=== PATIENT | male | born 1985 | race African-American/Black ===

== ENCOUNTER 2019-01-17 16:21 | Emergency (ER) | payer SELFPAY ==
[2019-01-17] MEDS: SUMAtriptan 6 MG/0.5 ML SDV SUBCUT ONE (16:31)
--- NOTE | 2019-01-17 16:33 | EDM.PDOC ---
ED HPI GENERAL MEDICAL PROBLEM - General Chief Complaint: Headache Stated Complaint: Migraine Time Seen by Provider: 01/17/19 16:35 Source of Information: Reports: Patient History Limitations: Reports: No Limitations - History of Present Illness INITIAL COMMENTS - FREE TEXT/NARRATIVE: Patient is a 33-year-old who has family history of migraine headaches states that he's had a migraine now for 2 days with no relief is on no migraine medication Onset: Gradual Duration: Day(s):, Recurring Location: Reports: Head Quality: Reports: Ache, Sharp Severity: Moderate Improves with: Reports: None Worsens with: Reports: None - Related Data Allergies Allergy/AdvReac Type Severity Reaction Status Date / Time No Known Allergies Allergy Verified 01/17/19 16:29 Home Meds: Home Meds . [No Known Home Meds] 01/17/19 [History] ED ROS GENERAL - Review of Systems Review Of Systems: ROS reveals no pertinent complaints other than HPI. Respiratory: Reports: No Symptoms - Physical Exam Exam: See Below Exam Limited By: No Limitations General Appearance: Alert, WD/WN, No Apparent Distress Ears: Normal External Exam, Normal Canal, Hearing Grossly Normal, Normal TMs Nose: Normal Inspection, Normal Mucosa, No Blood Throat/Mouth: Normal Inspection Head Exam: Atraumatic, Normocephalic Neck: Normal Inspection, Supple, Non-Tender, Full Range of Motion Respiratory/Chest: No Respiratory Distress, Lungs Clear, Normal Breath Sounds, No Accessory Muscle Use, Chest Non-Tender Cardiovascular: Normal Peripheral Pulses, Regular Rate, Rhythm, No Edema, No Gallop, No JVD, No Murmur, No Rub GI/Abdominal: Normal Bowel Sounds, Soft, Non-Tender, No Organomegaly, No Distention, No Abnormal Bruit, No Mass (Male) Exam: No Hernia, Normal Inspection, Normal Prostate, Circumcised Rectal (Males) Exam: Deferred Neuro Exam (Abbreviated): Alert, Oriented, CN II-XII Intact, Normal Cognition, Normal Gait, Normal Reflexes, No Motor/Sensory Deficits Back Exam: Normal Inspection, Full Range of Motion, NT Extremities: Normal Inspection, Normal Range of Motion, Non-Tender, No Pedal Edema, Normal Capillary Refill Psychiatric: Normal Affect, Normal Mood Skin Exam: Warm, Dry, Intact, Normal Color, No Rash Course - Orders/Labs/Meds Meds: Medications Discontinued Medications Generic Name Dose Route Start Last Admin Trade Name Marleni PRN Reason Stop Dose Admin Sumatriptan Succinate 6 mg 01/17/19 16:27 Imitrex SUBCUT 01/17/19 16:28 ONETIME ONE Departure - Departure Time of Disposition: 16:36 Disposition: Home, Self-Care 01 Condition: Poor Clinical Impression: Migraine Migraine headache Qualifiers: Status migrainosus presence: with status migrainosus Intractability: intractable - Discharge Information *PRESCRIPTION DRUG MONITORING PROGRAM REVIEWED*: No *COPY OF PRESCRIPTION DRUG MONITORING REPORT IN PATIENT VANNA: No Referrals: PCP,None [Primary Care Provider] - Care Plan Goals: Given Imitrex: [place] to Imitrex will resolve his headache send him home his headache resolved patient can return to work
== END 2019-01-17 17:50 | disposition home or self-care (01) ==
LOC: SUPCPDRO 16:21 → LL.ED 16:21
DX: G43.911 Migraine, unspecified, intractable, with status migrainosus (principal)
CPT/HCPCS: 96372; 99283; J3030